=== PATIENT | female | born 1965 | race Caucasian/White ===

== ENCOUNTER 2021-05-07 10:41 | Emergency (ER) | payer BC, SELFPAY ==
--- NOTE | ~2021-05-07 | XR_ITS ---
EXAMINATION: XR chest 2V DATE: 05/07/2021 11:27 INDICATION: Cough and fatigue TECHNIQUE: PA and lateral views of the chest were obtained. COMPARISON: Chest radiograph dated 02/16/2018 FINDINGS: The lungs remain clear with no focal airspace opacities, pulmonary edema, pleural effusion or pneumot horax. The cardiomediastinal silhouette is normal. Cholecystectomy clips in the right upper quadrant. Mild to moderate thoracic spondylosis. Suture anchors at the right humeral head likely related to pr ior rotator cuff repair. IMPRESSION: 1. No acute cardiopulmonary disease. Reviewed, dictated and finalized at location B. [employer]
[2021-05-07 10:49] VITALS: BP 147/93; PULSE 109; RESP 16; TEMP 36.3; O2SAT 100
--- NOTE | 2021-05-07 11:17 | ED.URI ---
HPI - URI/Sore Throat General Chief Complaint: Upper Respiratory Infection Stated Complaint: sinus congestion fatigue diarrhea Time Seen by Provider: 05/07/21 11:12 Source: patient and RN notes reviewed Mode of arrival: ambulatory Limitations: no limitations History of Present Illness HPI Narrative: Patient presents today complaining of a 1 week history of cough, congestion, fatigue and weakness, shortness of breath with exertion. Denies fever. She has been taking DayQuil and NyQuil as well as a rescue inhaler with some relief. History of reactive airway disease. She has not been vaccinated against influenza or COVID-19. MD elicited complaint: cough and nasal congestion Related Data Home Medications Medication Instructions Recorded Confirmed alprazolam 05/07/21 alprazolam 05/07/21 bupropion HCl mg PO 05/07/21 cholestyramine-aspartame ea 05/07/21 [Cholestyramine Light] cyclobenzaprine mg 05/07/21 levothyroxine 05/07/21 norethindrone ac-eth estradiol tablet 05/07/21 pantoprazole PO 05/07/21 topiramate 05/07/21 tramadol mg 05/07/21 zolpidem 05/07/21 Allergies Allergy/AdvReac Type Severity Reaction Status Date / Time thimerosal Allergy Unknown Unknown Verified 06/24/20 10:27 No Known Allergies Allergy Verified 06/24/20 10:27 Review of Systems Review of Systems: CONSTITUTIONAL: Denies body aches, fever, chills, or sweats.+ Fatigue EYES: Denies visual changes, redness, or discharge. ENT: Denies rhinorrhea, sore throat, or otalgia.+ Congestion CARDIOVASCULAR: Denies chest pain, palpitations, or edema. RESPIRATORY: + Cough, shortness of breath with exertion GASTROINTESTINAL: Denies abdominal pain, nausea, vomiting, or diarrhea. GENITOURINARY: Denies dysuria or hematuria. SKIN: Denies rash, itching, or wounds. MUSCULOSKELETAL: Denies back pain, joint pain, or myalgia. NEUROLOGIC: Denies headache, numbness, tingling. PSYCH: Denies depression or anxiety. FOR[facility]LY [facility] Past Medical History Medical History (Updated 05/07/21 @ 11:44 by Ana Bergeron, [employer] GLAZIER, BC) Anxiety Biceps tendonitis on left Dizziness Hearing loss Light headedness Reactive airway disease Sleep disorder Vertigo Family History Family History Mother Family history of coronary artery disease Family history of diabetes mellitus in first degree relative Acute myocardial infarction Father Cerebrovascular accident Family history of malignant neoplasm Family history of diabetes mellitus in first degree relative Diabetes mellitus Other Family history of arthritis Family history of cardiovascular disease Hypertension Social History Social History Smoking status: Never smoker Smoking end date: 05/01/93 Alcohol intake: current Comments At time of signature, I have reviewed and agree with nursing past medical, surgical, social and family history unless otherwise noted. Please see nursing chart for further information. There is no relevant family history pertinent to the presenting complaint Exam Narrative: GENERAL: Well-appearing, well-nourished, and in no acute distress. HEAD: Normocephalic, atraumatic. EYES: EOMI. No redness or drainage. Conjunctivae normal. ENT: Mucous membranes pink and moist. Nares clear. No rhinorrhea. TMs normal bilaterally. Throat normal. Uvula midline. NECK: Normal AROM. Supple. No lymphadenopathy. CHEST: No respiratory distress. Slight crackle left lower lobe, otherwise clear. HEART: Regular rate and rhythm. No murmur appreciated. Normal peripheral pulses. EXTREMITIES: Normal range of motion. No edema. SKIN: Warm, dry, no rash. Capillary refill normal. Normal skin turgor. NEURO: No focal deficits. Alert and oriented x3. Gait steady. PSYCH: Normal affect. No signs of depression or anxiety. Course Course Level of Care: Express Care Visit Vital Signs V
== END 2021-05-07 12:03 | disposition home or self-care (01) ==
PROVIDERS: Emergency Provider Nurse Practitioner; PCP Internal Medicine
DX: J40 Bronchitis, not specified as acute or chronic (principal); J06.9 Acute upper respiratory infection, unspecified; Z20.822 Contact with and (suspected) exposure to COVID-19; F41.9 Anxiety disorder, unspecified
CPT/HCPCS: 71046; 87426; 87804; 99213; C9803; G0463

== ENCOUNTER 2021-08-24 08:05 | Outpatient (CLI) | payer BC, SELFPAY ==
--- NOTE | ~2021-08-24 | US_ITS ---
EXAMINATION: US arterial ankle brachial ind DATE: 08/24/2021 08:45 INDICATION: Lower limb pain. Peripheral vascular disease risk factors of hypertension and smoking. TECHNIQUE: Segmental pressures and plethysmographic and Doppler waveforms of the brachial and lower e xtremity arteries were obtained. COMPARISON: None. FINDINGS: Right and left brachial artery pressures of 128 mm Hg and 131 mm Hg, respectively, are concordant (no rmal difference <= 30 mmHg). The right ankle-brachial index (KIM) is 1.18 (normal >= 0.9-1.0). The right great toe-brachial index (TBI) is 0.73 (normal >= 0.65). Arterial Doppler waveforms are triphasic with brisk systolic upstroke s at both right posterior tibial and dorsalis pedis arteries. The left KIM is 1.14. The left TBI is 0.82. Arterial Doppler waveforms are triphasic at the left post erior tibial and biphasic at the left dorsalis pedis arteries, both with brisk systolic upstrokes. IMPRESSION: 1. No significant arterial occlusive disease to either lower limb with normal bilateral ABIs and TBIs Reviewed, dictated and finalized at location B. IMPRESSION: 1. No significant arterial occlusive disease to either lower limb with normal b ilateral ABIs and TBIs
== END 2021-08-24 08:06 | disposition home or self-care (01) ==
PROVIDERS: PCP Internal Medicine; Visit Provider Internal Medicine Cardiovascular Disease
DX: M79.606 Pain in leg, unspecified (principal); I10 Essential (primary) hypertension; Z72.0 Tobacco use
CPT/HCPCS: 93922

== ENCOUNTER → 2023-03-07 09:19 | Outpatient (CLI) | payer BC, SELFPAY ==
--- NOTE | ~2023-03-07 | XR_ITS ---
Clinical Indication: Covid 19 PA and lateral views of the chest: Comparison: 05/07/2021 Findings: The lungs are clear, without evidence of focal consolidation or pleural effusion. Cardiome diastinal silhouette is within normal limits. Bones and soft tissues are unremarkable. Impression: Normal chest. Reviewed, dictated and finalized at [facility]. [employer]INTER Impression: Normal chest.
== END ==
PROVIDERS: PCP Internal Medicine Cardiovascular Disease; Visit Provider Physician Assistant
DX: U07.1 COVID-19 (principal); Z20.822 Contact with and (suspected) exposure to COVID-19; Z86.16 Personal history of COVID-19
CPT/HCPCS: 71046

== ENCOUNTER 2023-04-12 08:31 | Outpatient (CLI) | payer BC, SELFPAY ==
--- NOTE | 2023-04-12 08:47 | ECHO_ITS ---
Patient Info Name: Ayde Nelson Age: 57 years : 1965 Gender: Female Ht: 65 in Wt: 142 lbs BSA: 1.73 m2 HR: 90 bpm BP: 129 / 74 mmHg Technical Quality: Good Exam Date: 04/12/2023 8:54 AM Exam Location: Echo Lab Patient Status: Outpatient Admit Date: 04/12/2023 Staff Ordering Physician: Blaine Toro DO Attending Provider: Blaine Toro DO Referring Physician: Cortez HO; Exam Type: CA echo dop color flow w con Study Info Indications R00.0 - Tachycardia, unspecified Complete two-dimensional, color flow and Doppler transthoracic echocardiogram is performed. Summary 1. Complete two-dimensional, color flow and Doppler transthoracic echocardiogram is performed. 2. Left ventricular chamber dimension is normal. 3. Left ventricular systolic function is normal, estimated at 55-60%. 4. E/e' 8 is minimally elevated. 5. There is trace mitral valve regurgitation. Left Ventricle E/e' 8 is minimally elevated. Left ventricular chamber dimension is normal. Left ventricular systolic function is normal, estimated at 55-60%. Right Ventricle Right ventricular systolic function is normal and with normal TAPSE 2.3 cm. Right ventricular chamber dimension is normal. Left Atria Left atrial chamber dimension is normal. Right Atria Right atrial chamber dimension is normal. Aortic Valve The aortic valve is trileaflet. There is no aortic valve stenosis. There is no aortic valve regurgitation. Pulmonic Valve There is no pulmonic regurgitation. Mitral Valve There is no mitral valve stenosis. There is trace mitral valve regurgitation. Tricuspid Valve There is no tricuspid valve regurgitation. Pericardium/Pleural There is no pericardial effusion. Inferior Vena Cava Normal inferior vena cava with >50% collapse upon inspiration consistent with normal right atrial pressure, 5 mmHg. Aorta The aortic root size at the sinus of Valsalva is normal. Left Ventricular Outflow Tract Name Value Normal LVOT 2D LVOT Diameter 2.00 cm LVOT Doppler LVOT Peak Gradient 4 mmHg LVOT Mean Gradient 2 mmHg LVOT VTI 19.11 cm LVOT VTI/AV VTI Ratio 0.68 LVOT Stroke Volume 60.04 ml LVOT CO 5.26 l/min LVOT CI 3.05 L/min/m2 Pulmonic Valve Name Value Normal PV Doppler PV Peak Gradient 2 mmHg Mitral Valve Name Value Normal MV Doppler MV Peak Gradient 4 mmHg MV Mean Gradient 1 mmHg MV Area (Cont Eq VTI) 2.39 cm2 MV Louisa
== END 2023-04-12 08:32 | disposition home or self-care (01) ==
LOC: ANHCARD 08:33
PROVIDERS: PCP Physician Assistant; Visit Provider Internal Medicine Cardiovascular Disease
DX: R00.0 Tachycardia, unspecified (principal)
CPT/HCPCS: 93306; C8929

== ENCOUNTER 2023-08-11 07:46 | Outpatient (CLI) | payer BC, SELFPAY ==
--- NOTE | ~2023-08-11 | MR_ITS ---
EXAMINATION: MR shoulder RT wo con DATE: 08/11/2023 08:27 INDICATION: Complete right rotator cuff tear TECHNIQUE: Magnetic resonance imaging (MRI) of the right shoulder was performed without intravenous c ontrast. Sequences included axial PD-weighted FS FSE, coronal oblique PD-weighted FS FSE, coronal obl ique T2-weighted FS FSE, sagittal PD-weighted FS FSE, and sagittal T1-weighted SE. COMPARISON: None. FINDINGS: Coracoacromial arch: The acromion undersurface is minimally curved in morphology (type I-II). There are multiple foci of s usceptibility artifact along the anterior and lateral margins of the acromion and in the more superfi cial subcutaneous tissues which suggests possible prior acromioplasty. Small marginal osteophytes at the acromioclavicular joint consistent with at least mild osteoarthritis but with borderline widening of the joint space which suggests prior distal clavicle excision. There is thickening of the coracoa cromial ligament. Rotator cuff: Magnetic field artifact associated with suture anchors along the greater tuberosity consistent with p rior rotator cuff repair involving the supraspinatus and infraspinatus tendons. There is moderate ten dinopathy of the supraspinatus and infraspinatus tendons. There is significant attenuation of the dis kasey aspect of the posterior infraspinatus tendon over an approximately 1 cm AP width of the tendon wi th approximately two thirds decrease in thickness of the tendon. The absence of prior postoperative i maging and remains indeterminate whether this represents stable residual sequela of the original tear or recurrent partial thickness tear. The infraspinatus tendon is normal. The teres minor tendon is n ormal. Mild subscapularis tendinopathy without tear. Normal rotator cuff muscle bulk and signal. Biceps tendon, glenoid labrum and glenohumeral cartilage: The intra-articular portion of the long head biceps tendon is not visualized. The extra articular por tion of the long head biceps tendon appears relatively taut extending cephalad becoming attenuated as it extends to the cephalad aspect of the intertubercular groove suggesting prior bicipital tenodesis . There are small marginal osteophytes extending from the rim of the glenoid into the base of the sup erior labrum. No evident labral tear. There is deep chondral ulceration with underlying cortical irre gularity and underlying subarticular edema-like and cystlike changes at the posterior and posterosupe rior aspect of the humeral head. There is additional partial thickness cartilage loss with smooth cho ndral surface along the cephalad aspect of the glenoid and inferomedial aspect of the humeral head. Fluid: Physiologic amount of fluid in the glenohumeral joint and biceps tendon sheath. No loose osteochondr al bodies. Small amount of fluid in the subacromial/subdeltoid bursa consistent with mild bursitis. Bones: Bone alignment is normal. No fracture or pathologic marrow replacing process. IMPRESSION: 1. Postoperative change of prior supraspinatus and infraspinatus tendon repair with age-indeterminate small residual versus recurrent partial thickness tear of the distal posterior infraspinatus tendon. 2. Additional postoperative changes likely prior acromioplasty, distal clavicle excision and bicipita l tenodesis. 3. Mild glenohumeral osteoarthritis with regions of high-grade chondromalacia along the posterior and posterosuperior aspect of the humeral head. 4. Mild subacromial/subdeltoid bursitis. Reviewed, dictated and finalized at location B. IMPRESSION: 1. Postoperative change of prior supraspinatus and infraspinatus tendon repair with age-indeterminate small residual versus recurrent partial thickness tear o f the distal posterior infraspinatus tendon. 2. Additional posto
== END 2023-08-11 07:47 ==
PROVIDERS: PCP Orthopaedic Surgery; Visit Provider Orthopaedic Surgery
DX: M75.121 Complete rotator cuff tear or rupture of right shoulder, not specified as traumatic (principal); M19.011 Primary osteoarthritis, right shoulder; M75.51 Bursitis of right shoulder
CPT/HCPCS: 73221

== ENCOUNTER 2023-09-19 07:02 | Outpatient (CLI) | payer BC, SELFPAY ==
--- NOTE | ~2023-09-19 | MR_ITS ---
EXAMINATION: MR cervical spine wo con DATE: 09/19/2023 07:34 INDICATION: Neck pain. Other cervical disc degeneration, unspecified. TECHNIQUE: Magnetic resonance imaging (MRI) of the cervical spine was performed without intravenous c ontrast. COMPARISON: Cervical spine radiographs 09/12/2023 FINDINGS: There is hypolordosis of cervical spine. Vertebral body heights are normal. There is modera tely decreased disc height at C5-C6 and C6-C7. The spinal cord signal intensity is normal. The follow ing disc levels are specifically discussed: C2-C3: There is a central protrusion. There is no uncovertebral joint osteoarthritis. There is modera te right and severe left facet joint osteoarthritis. There is mild left neural foraminal stenosis. Th ere is mild central canal stenosis. C3-C4: There is a central extrusion. There is no uncovertebral joint osteoarthritis. There is mild ri ght and severe left facet joint osteoarthritis. There is moderate left neural foraminal stenosis. The re is mild central canal stenosis. C4-C5: The disc is bulging. There is mild bilateral uncovertebral joint osteoarthritis. There is mild right and severe left facet joint osteoarthritis. There is mild bilateral neural foraminal stenosis. There is mild central canal stenosis. C5-C6: The disc is bulging. There is severe bilateral uncovertebral joint osteoarthritis. There is mo derate bilateral facet joint osteoarthritis. There is moderate bilateral neural foraminal stenosis. T here is mild central canal stenosis with ventral indentation of the spinal cord. C6-C7: The disc is bulging. There is moderate right and severe left uncovertebral joint osteoarthriti s. There is moderate right and mild left facet joint osteoarthritis. There is mild bilateral neural f oraminal stenosis. There is mild central canal stenosis. C7-T1: There is a central extrusion. There is no uncovertebral joint osteoarthritis. There is mild bi lateral facet joint osteoarthritis. There is no neural foraminal stenosis. There is no central canal stenosis. IMPRESSION: 1. Moderate cervical spondylosis. Reviewed, dictated and finalized at location A.
== END 2023-09-19 07:03 ==
PROVIDERS: PCP Physician Assistant; Visit Provider Orthopaedic Surgery
DX: M50.30 Other cervical disc degeneration, unspecified cervical region (principal); M43.02 Spondylolysis, cervical region
CPT/HCPCS: 72141

== ENCOUNTER 2024-09-19 15:30 | Outpatient (CLI) | payer BC, SELFPAY ==
--- NOTE | ~2024-09-19 | MM_ITS ---
EXAMINATION: MM screening [facility] BI w ratna HISTORY: Screening TECHNIQUE: Craniocaudal and mediolateral oblique 3-D tomosynthesis images were obtained and synthetic 2-D images were generated. CAD analysis was submitted and interpreted. COMPARISON: 01/08/2014 and 06/17/2010 BREAST PARENCHYMAL COMPOSITION: Not Dense: The breasts are almost entirely fatty. FINDINGS: There is no evidence of suspicious mass, calcification, or architectural distortion to sugg est malignancy in either breast. There has been no suspicious interval change. IMPRESSION: 1. No mammographic evidence of malignancy. 2. Recommend routine screening mammography in one year. BI-RADS Category 1: Negative Reviewed, dictated and finalized at location B.
== END 2024-09-19 15:31 | disposition home or self-care (01) ==
LOC: MICIMG 15:30
PROVIDERS: PCP Physician Assistant; Visit Provider Obstetrics & Gynecology
DX: Z12.31 Encounter for screening mammogram for malignant neoplasm of breast (principal); Z01.419 Encounter for gynecological examination (general) (routine) without abnormal findings
CPT/HCPCS: 77063; 77067